=== PATIENT | male | born 1955 | race African-American/Black ===

== ENCOUNTER 2017-08-15 15:17 | Inpatient (IN) | payer OTHER, BC ==
[2017-08-15 15:25] VITALS: BMI 24.1
--- NOTE | 2017-08-15 15:26 | PDOC ---
Rapid Medical Evaluation Time Seen by Provider: 08/15/17 15:22 Medical Evaluation: 08/15/17 15:22 I have performed a brief in-person evaluation of this patient. The patient presents with a chief complaint of:upper abd pain that started after eating blended fruits with a bowl of cereal yesterday, no n/v/d/c/f/c. Seen by pmd whose concern is possible pancreatitis. Pt denies gallstones/ excessive ETOH use Pertinent physical exam findings:Mildly hypertensives w/ clear chest/lungs and + ttp/guarding to epigastrium I have ordered the following:labs/ekg The patient will proceed to the ED for further evaluation. 08/15/17 15:26
[2017-08-15 15:59] LABS: BASO % 0.2 % (0-2.0); EOS % 0.1 % (0-4.5); HEMATOCRIT 46.6 % (35.4-49); HEMOGLOBIN 15.7 GM/dL (11.7-16.9); LYMPH % 8.1 % (8-40); MCH 28.7 pg (25.7-33.7); MCHC 33.7 g/dl (32.0-35.9); MEAN CELL VOLUME 85.3 fl (80-96); MEAN PLT VOLUME 9.5 fl (7.5-11.1); MONO % 6.4 % (3.8-10.2); NEUT % 85.2 % (42.8-82.8); PLATELET COUNT 272 K/MM3 (134-434); RBC 5.46 M/mm3 (4.00-5.60); RDW 14.9 % (11.9-15.9); WHITE BLOOD COUNT 15.4 K/mm3 (4.0-10.0)
[2017-08-15 16:11] LABS: ALBUMIN 4.5 g/dl (3.4-5.0); ANION GAP 9 (8-16); BILIRUBIN,TOTAL 0.6 mg/dL (0.2-1.0); BLOOD UREA NITROGEN 11 mg/dL (7-18); CALCIUM 9.7 mg/dL (8.5-10.1); CHLORIDE 100 mmol/L (98-107); CO2 28 mmol/L (21-32); CREATININE 0.9 mg/dL (0.7-1.3); GLUCOSE,RANDOM 135 mg/dL (74-106); LIPASE 72 U/L (73-393); SGOT/AST 18 U/L (15-37); SGPT/ALT 25 U/L (12-78); SODIUM 137 mmol/L (136-145)
[2017-08-15 16:15] LABS: ALK PHOS 67 U/L (45-117); TOT PROT 8.3 g/dl (6.4-8.2)
--- NOTE | 2017-08-15 16:42 | PDOC ---
Attending Attestation - HPI HPI: 08/15/17 18:03 The patient is a 62 year old male, with a significant past medical history of hypertension, who presents to the emergency department with abdominal pain since earlier this morning. The patient reports sudden onset of abdominal pain, which he describes a burning to the mid abdomen. He reports his symptoms began after eating breakfast. He endorses associated nausea, but denies any vomiting, diarrhea, or constipation. Patient reports visiting his PCP, who recommended the patient come to the ED to r/o pancreatitis. The patient denies any history of heavy alcohol use, and reports his last drink was several weeks ago. He denies any fever or chills. He denies any chest pain, shortness of breath, diaphoresis, or palpitations. He denies any dysuria, hematuria, frequency, or urgency. He denies any recent travel or sick contacts. Allergies: NKDA Past Surgical History: None reported Social History: Non smoker. No ETOH or recreational drug use - Medical Decision Making 08/15/17 18:03 Documentation prepared by Casper Franco, acting as medical records coordinator for Alma Pepper MD. <Casper Franco - Last Filed: 08/15/17 18:03> - Resident Resident Name: Luis Fernando Jaime - ED Attending Attestation I have performed the following: I have examined & evaluated the patient, The case was reviewed & discussed with the resident, I agree w/resident's findings & plan, Exceptions are as noted - Physicial Exam PE: GENERAL: Awake, alert, and fully oriented, in no acute distress. Appears uncomfortable. HEAD: No signs of trauma EYES: PERRLA, EOMI, sclera anicteric, conjunctiva clear ENT: Auricles normal inspection, hearing grossly normal, nares patent, oropharynx clear without exudates. Moist mucosa NECK: Normal ROM, supple, no lymphadenopathy, JVD, or masses LUNGS: Breath sounds equal, clear to auscultation bilaterally. No wheezes, and no crackles HEART: Regular rate and rhythm, normal S1 and S2, no murmurs, rubs or gallops ABDOMEN: Soft, +diffuse tenderness (worst in epigastric area), normoactive bowel sounds. +Guarding, +rebound. No masses EXTREMITIES: Normal range of motion, no edema. No clubbing or cyanosis. No cords, erythema, or tenderness NEUROLOGICAL: Cranial nerves II through XII grossly intact. Normal speech, normal gait SKIN: Warm, Dry, normal turgor, no rashes or lesions noted. - Medical Decision Making Pt with diffuse abd tenderness. Pt is vague historian and appears to minimize his pain, as he has involuntary guarding on exam. Will obtain CT to further evaluate. <Alma Pepper - Last Filed: 08/16/17 10:23>
--- NOTE | 2017-08-15 17:11 | PDOC ---
History of Present Illness - General Chief Complaint: Pain, Acute Stated Complaint: ABD PAIN (PCP SENT) Time Seen by Provider: 08/15/17 15:22 - History of Present Illness Initial Comments: 08/15/17 17:47 The patient is a 62 year old male with a history of HTN who presents for evaluation of abdominal pain. The patient reports onset of burning mid abdominal pain earlier this morning after eating breakfast with some associated nausea. The patient initially presented to his primary care provider who sent him to the ED for concerns for pancreatitis. The patient denies any history of heavy alcohol use with his last drink several weeks ago. He denies fevers, chills, SOB, chest pain, vomiting, or changes with urination or bowel movements. Past History - Past Medical History Allergies/Adverse Reactions: Allergies Allergy/AdvReac Type Severity Reaction Status Date / Time No Known Allergies Allergy Verified 08/15/17 15:25 Home Medications: Ambulatory Orders Amlodipine Besylate 5 mg PO DAILY 08/15/17 Hydrochlorothiazide [Hctz -] 12.5 mg PO DAILY 08/15/17 COPD: No HTN: Yes - Suicide/Smoking/Psychosocial Hx Smoking History: Never smoked Hx Alcohol Use: Yes Drug/Substance Use Hx: No Review of Systems - Review of Systems Comments:: 08/15/17 17:49 Constitutional: No fevers, chills, fatigue, malaise HEENT: No Rhinorrhea, nasal congestion, visual changes Cardiovascular: No chest pain, syncope, palpitations, lightheadedness Respiratory: No Cough, SOB, Hemoptysis, Gastrointestinal: Abdominal pain. Nausea. No Vomiting, Constipation, Diarrhea, Melena Genitourinary: No Dysuria, Frequency, Urgency, Hesitancy, Hematuria, Flank pain Musculoskeletal: No Myalgia, arthralgia Skin: No rashes, itching, bruising, pallor Neurologic: No Headache, Dizziness, Numbness, Weakness, or Tingling Psychiatric: No Hallucinations. No SI or HI *Physical Exam - Vital Signs Last Vital Signs Temp Pulse Resp BP Pulse Ox 98.5 F 94 H 18 144/103 97 08/15/17 15:22 08/15/17 15:22 08/15/17 15:22 08/15/17 15:22 08/15/17 15:22 - Physical Exam Comments: 08/15/17 17:51 General Appearance: Nourished. No Apparent Distress HEENT: EOMI, CAROLE. No Pharyngeal Erythema, Tonsillar Exudate, Tonsillar Erythema Neck: No Cervical Lymphadenopathy Respiratory/Chest: Lungs Clear, Normal Breath Sounds. No Crackles, Rales, Rhonchi, Wheezing Cardiovascular: Regular Rhythm, Regular Rate. No Murmur, Gallops, Rubs Gastrointestinal/Abdominal: Normal Bowel Sounds. Tenderness to palpation just below the epigastrium with guarding. No Rebound, Musculoskeletal: No CVA Tenderness Extremity: Normal Capillary Refill Integumentary: Normal Color, Dry, Warm Neurologic: Fully Oriented, Alert, Normal Mood/Affect, Normal Response, Heart Score/ECG Review #1 ECG reviewed & interpreted by me at: 18:03 General ECG Interpretation: Sinus Rhythm, Normal Rate, Normal Intervals, No acute ischemic changes ED Treatment Course - LABORATORY CBC & Chemistry Diagram: 08/16/17 07:00 08/16/17 07:00 - ADDITIONAL ORDERS Additional order review: Laboratory Results 08/15/17 15:40 Sodium 137 Potassium 4.0 Chloride 100 Carbon Dioxide 28 Anion Gap 9 BUN 11 Creatinine 0.9 Creat Clearance w eGFR > 60 Random Glucose 135 H Calcium 9.7 Total Bilirubin 0.6 AST 18 ALT 25 Alkaline Phosphatase 67 Creatine Kinase 136 Troponin I < 0.02 Total Protein 8.3 H Albumin 4.5 Lipase 72 L 08/15/17 15:40 RBC 5.46 MCV 85.3 MCHC 33.7 RDW 14.9 MPV 9.5 Neutrophils % 85.2 H Lymphocytes % 8.1 Monocytes % 6.4 Eosinophils % 0.1 Basophils % 0.2 Medical Decision Making - Medical Decision Making 08/15/17 17:53 The patient is a 62 year old male with a history of HTN who presents for evaluation of abdominal pain. Differential includes but is not limited to: Pancreatitis, Gastritis, infectious, metabolic derangement. Labs performed in triage demonstrate an elevated wbc to 15, but otherwise cmp, lipase are unremarkable. Given his continued symptoms, we will obtain a ct abdomen/pelvis to evaluate further and treat the patient with iv fluids. We will continue to monitor and reassess. 08/15/17 19:05 CT abdomen pelvis demonstrates high grade, partial small bowel obstruction as read by our radiologist. The patient will require admission for further management of his symptoms. We will consult with surgery as well. 08/15/17 19:06 We discussed the case with Dr. Leigh with surgery who has been made aware of the case. An NG tube will be placed and the patient will be admitted. The patient has been signed out to Dr. Araujo pending admission and ng tube placement. *DC/Admit/Observation/Transfer Diagnosis at time of Disposition: Small bowel obstruction - Discharge Dispostion Condition at time of disposition: Guarded - Referrals - Patient Instructions - Post Discharge Activity
[2017-08-15] MEDS ORDERED: SODIUM CHLORIDE 1,000 ML IV STA (17:38)
[2017-08-15] MEDS ORDERED: morphine CARPU-JECT 4 MG/1 ML DISP.SYRIN IVPUSH ONE ×2 (19:18→19:34)
--- NOTE | 2017-08-15 19:25 | HP ---
CHIEF COMPLAINT: sever Abdominal pain PCP: Delaney Casarez HISTORY OF PRESENT ILLNESS: 62 year old male with pmh of HTN and left inguinal hernia presented with one day history of sever abdominal pain med epigastric 10/10 local no radiating pressure like. denies any fever chills, N/V/D . last bowel movement morning was normal. denies any recent cold or sick contact. denies any headache , blurry vision, sore throat, denies any chest pain or SOB, denies any urinary symptoms. ER course was notable for: (1)CBC, CMP (2)CT Abdomen pelvic with small bowel obstruction (3)EKG QTC Recent Travel:denies PAST MEDICAL HISTORY:HTN. Left inguinal hernia PAST SURGICAL HISTORY: Left inguinal hernia , tubal legation (vasectomy) Social History: Smoking:denies Alcohol: 2 shots of weskey daily , quit 2 weeks ago Drugs: denies Family History:mother at age of 67 of stroke , father of old age. Allergies No Known Allergies Allergy (Verified 08/15/17 15:25) HOME MEDICATIONS: REVIEW OF SYSTEMS CONSTITUTIONAL: Absent: fever, chills, diaphoresis, generalized weakness, malaise, loss of appetite, weight change HEENT: Absent: rhinorrhea, nasal congestion, throat pain, throat swelling, difficulty swallowing, mouth swelling, ear pain, eye pain, visual changes CARDIOVASCULAR: Absent: chest pain, syncope, palpitations, irregular heart rate, lightheadedness , peripheral edema RESPIRATORY: Absent: cough, shortness of breath, dyspnea with exertion, orthopnea, wheezing, stridor, hemoptysis GASTROINTESTINAL: Absent: abdominal pain, abdominal distension, nausea, vomiting, diarrhea, constipation, melena, hematochezia GENITOURINARY: Absent: dysuria, frequency, urgency, hesitancy, hematuria, flank pain, genital pain MUSCULOSKELETAL: Absent: myalgia, arthralgia, joint swelling, back pain, neck pain SKIN: Absent: rash, itching, pallor HEMATOLOGIC/IMMUNOLOGIC: Absent: easy bleeding, easy bruising, lymphadenopathy, frequent infections ENDOCRINE: Absent: unexplained weight gain, unexplained weight loss, heat intolerance, cold intolerance NEUROLOGIC: Absent: headache, focal weakness or paresthesias, dizziness, unsteady gait, seizure, mental status changes, bladder or bowel incontinence PSYCHIATRIC: Absent: anxiety, depression, suicidal or homicidal ideation, hallucinations. PHYSICAL EXAMINATION Vital Signs - 24 hr 08/15/17 15:22 Temperature 98.5 F Pulse Rate 94 H Respiratory 18 Rate Blood Pressure 144/103 O2 Sat by Pulse 97 Oximetry (%) GENERAL: AAOx 3 HEAD: NC/AT EYES: EOMI, PEARLA , sclera anicteric, conjunctiva clear. EARS, NOSE, THROAT: Ears normal, nares patent, oropharynx clear without exudates. Moist mucous membranes. NECK: Normal range of motion, supple without lymphadenopathy, JVD, LUNGS: CTA B/L . No wheezes, and no crackles. No accessory muscle use. HEART: Regular rate and rhythm, normal S1 and S2 without murmur, rub or gallop. ABDOMEN: Soft, mid epigastric tenderness , not distended, hyperactive bowel sounds, no guarding, no rebound, MUSCULOSKELETAL: Normal range of motion at all joints. No bony deformities or tenderness. No CVA tenderness. UPPER EXTREMITIES: 2+ pulses, warm, well-perfused. No cyanosis. No clubbing. No peripheral edema. LOWER EXTREMITIES: 2+ pulses, warm, well-perfused. No calf tenderness. No peripheral edema. NEUROLOGICAL: Cranial nerves II-XII intact. Normal speech. Normal gait. PSYCHIATRIC: Cooperative. Good eye contact. SKIN: Warm, dry, Laboratory Results - last 24 hr 08/15/17 08/15/17 15:40 15:40 WBC 15.4 H RBC 5.46 Hgb 15.7 Hct 46.6 MCV 85.3 MCH 28.7 MCHC 33.7 RDW 14.9 Plt Count 272 MPV 9.5 Neutrophils % 85.2 H Lymphocytes % 8.1 Monocytes % 6.4 Eosinophils % 0.1 Basophils % 0.2 Sodium 137 Potassium 4.0 Chloride 100 Carbon Dioxide 28 Anion Gap 9 BUN 11 Creatinine 0.9 Creat Clearance w eGFR > 60 Random Glucose 135 H Calcium 9.7 Total Bilirubin 0.6 AST 18 ALT 25 Alkaline Phosphatase 67 Creatine Kinase 136 Troponin I < 0.02 Total Protein 8.3 H Albumin 4.5 Lipase 72 L CBC, [facility] 08/15/17 15:40 08/15/17 15:40 ASSESSMENT/PLAN: 62 year old male with PMH of HTn and L inguinal hernia presented with one day history of sever abdominal pain with no nausea or vomiting was found to have small bowel obstruction, admitted to med surg for further evaluation. # Abdominal pain due to partial Small Bowel obstruction * presented with med epigastric abdominal pain , no N/V , H/O Left inguinal hernia * wbc 14.4 with no fever , repeat CBC, CMP daily * NPO * IV fluids RL 125 CC/hr * NG tube in place * pain control: Morphin 2 mg IVBP Q 4hr * Antiemetics : Zofran 4 mg IVBP Q 8hr PRN for N/V * Consult Surgery # HTN * hold home meds for now Amlodipine 5 mg po daily , HCTZ 12.5 mg po daily * Monitor BP closely off medicine # FEN * F: RL @ 125 CC/hr * E: WNL monitor * N: NPO for now bowel rest # Proph * DVT: SCDs both legs , early ambulation * GI: no need for now #dispo * Admit to med-surg Visit type - Emergency Visit Emergency Visit: Yes ED Registration Date: 08/15/17 Care time: The patient presented to the Emergency Department on the above date and was hospitalized for further evaluation of their emergent condition. - New Patient This patient is new to me today: Yes Date on this admission: 08/18/17 - Critical Care Critical Care patient: No Hospitalist Screening - Colonoscopy Questionnaire Colonoscopy Questionnaire: Colonoscopy Questionnaire - Patient: 50 - 75 years old and never had a screening colonoscopy: Yes History of colon or rectal polyps, or CA: No History of IBD, Crohn's disease or UC: No History of abdominal radiation therapy as a child: No - Relative: 1 with colon or rectal CA, or polyps at age 60 or younger: No Colon or rectal CA diagnosed at age 45 or younger: No Multiple relatives with colon or rectal CA: No - Outcome: Screening Result: Positive Screen
[2017-08-15] MEDS ORDERED: MORPHINE SULFATE 10 MG/1 ML *VIAL ONE (19:35)
--- NOTE | 2017-08-15 19:55 | PDOC ---
*Physical Exam - Vital Signs Last Vital Signs Temp Pulse Resp BP Pulse Ox 98.5 F 94 H 18 144/103 97 08/15/17 15:22 08/15/17 15:22 08/15/17 15:22 08/15/17 15:22 08/15/17 15:22 ED Treatment Course - LABORATORY CBC & Chemistry Diagram: 08/15/17 15:40 08/15/17 15:40 - ADDITIONAL ORDERS Additional order review: Laboratory Results 08/15/17 15:40 Sodium 137 Potassium 4.0 Chloride 100 Carbon Dioxide 28 Anion Gap 9 BUN 11 Creatinine 0.9 Creat Clearance w eGFR > 60 Random Glucose 135 H Calcium 9.7 Total Bilirubin 0.6 AST 18 ALT 25 Alkaline Phosphatase 67 Creatine Kinase 136 Troponin I < 0.02 Total Protein 8.3 H Albumin 4.5 Lipase 72 L 08/15/17 15:40 RBC 5.46 MCV 85.3 MCHC 33.7 RDW 14.9 MPV 9.5 Neutrophils % 85.2 H Lymphocytes % 8.1 Monocytes % 6.4 Eosinophils % 0.1 Basophils % 0.2 - Medications Given in the ED: ED Medications Discontinued Medications Generic Name Dose Route Start Last Admin Trade Name Freq PRN Reason Stop Dose Admin Sodium Chloride 1,000 mls @ 1,000 mls/hr 08/15/17 17:38 08/15/17 18:51 Normal Saline - IV 08/15/17 18:37 1,000 mls/hr ASDIR STA Administration Morphine Sulfate 4 mg 08/15/17 19:18 08/15/17 19:43 Morphine Injection - IVPUSH 08/15/17 19:19 4 mg ONCE ONE Administration Morphine Sulfate 4 mg 08/15/17 19:34 08/15/17 19:38 Morphine Injection - IVPUSH 08/15/17 19:35 4 mg ONCE ONE Administration Medical Decision Making - Medical Decision Making 08/15/17 19:53 Continuing medical care from Dr. Jaime. Pt with partial SBO, for admission- will discuss with hospitalist team. Pt for imaging currently to confirm NGT placement. Intermittent wall suction Still c/o of intermittent, diffuse abdominal pain- 03/2508/15/17 20:16 Pt for med-surg under Dr. Deluca. Discussed case with Dr. Kenney, hospitalist team. *DC/Admit/Observation/Transfer Diagnosis at time of Disposition: Small bowel obstruction - Discharge Dispostion Condition at time of disposition: Guarded Admit: Yes - Referrals - Patient Instructions - Post Discharge Activity
[2017-08-15] MEDS ORDERED: morphine CARPU-JECT 2 MG/1 ML DISP.SYRIN IVPUSH PRN (21:06)
[2017-08-15] MEDS ORDERED: ONDANSETRON 4 MG/2 ML VIAL IVPB ONE (21:14)
[2017-08-15] MEDS ORDERED: ONDANSETRON 4 MG/2 ML VIAL ONE (22:01)
[2017-08-15] MEDS: LACTATED RINGERS SOLUTION 1,000 ML IV SCH (22:06)
--- NOTE | 2017-08-15 23:26 | PN ---
Teaching Attending Note Name of Resident: Kobe Kenney ATTENDING PHYSICIAN STATEMENT I saw and evaluated the patient. I reviewed the resident's note and discussed the case with the resident. I agree with the resident's findings and plan as documented. SUBJECTIVE: 62M with hx hernia repair comes in with abd Pain, no BM for past day OBJECTIVE: abdomen tender nonfocal, no rebound or guarding CTAP shows small bowel obstruction ASSESSMENT AND PLAN: partial SBO, possibly form adhesions from prior abdominal surgery. He currently does not have an acute abdomen and can be managed conservatively. NGT, IVF, pain control surgery eval Problem List - Problems (1) Small bowel obstruction Code(s): K56.609 - UNSP INTESTNL OBST, UNSP TO PARTIAL VERSUS COMPLETE OBST
[2017-08-15] MEDS: MORPHINE SULFATE 10 MG/1 ML *VIAL IVPUSH PRN (23:51)
[2017-08-16] MEDS: LACTATED RINGERS SOLUTION 1,000 ML IV SCH ×3 (05:32→21:48)
[2017-08-16 08:27] LABS: ALBUMIN 3.5 g/dl (3.4-5.0); AMYLASE 167 U/L (25-115); ANION GAP 13 (8-16); BLOOD UREA NITROGEN 11 mg/dL (7-18); CALCIUM 8.9 mg/dL (8.5-10.1); CHLORIDE 101 mmol/L (98-107); CO2 26 mmol/L (21-32); CREATININE 0.8 mg/dL (0.7-1.3); GLUCOSE,RANDOM 129 mg/dL (74-106); MAGNESIUM 2.1 mg/dL (1.8-2.4); POTASSIUM 4.1 mmol/L (3.5-5.1); SGOT/AST 20 U/L (15-37); SGPT/ALT 20 U/L (12-78); SODIUM 140 mmol/L (136-145)
[2017-08-16 08:29] LABS: ALK PHOS 54 U/L (45-117); BILIRUBIN,TOTAL 0.7 mg/dL (0.2-1.0)
[2017-08-16 08:36] LABS: LIPASE 256 U/L (73-393)
[2017-08-16 08:39] LABS: BASO % 0.4 % (0-2.0); EOS % 1.1 % (0-4.5); HEMATOCRIT 42.5 % (35.4-49); HEMOGLOBIN 14.2 GM/dL (11.7-16.9); LYMPH % 8.4 % (8-40); MCH 28.8 pg (25.7-33.7); MCHC 33.4 g/dl (32.0-35.9); MEAN CELL VOLUME 86.2 fl (80-96); MEAN PLT VOLUME 9.8 fl (7.5-11.1); MONO % 9.5 % (3.8-10.2); NEUT % 80.6 % (42.8-82.8); PLATELET COUNT 240 K/MM3 (134-434); RBC 4.92 M/mm3 (4.00-5.60); RDW 14.8 % (11.9-15.9); WHITE BLOOD COUNT 14.1 K/mm3 (4.0-10.0)
[2017-08-16 08:45] LABS: INR 1.04 (0.82-1.09); PROTHROMBIN TIME (PATIENT) 11.7 SEC (9.98-11.88)
[2017-08-16 08:48] LABS: ACTIVATED PTT 27.8 SECONDS (26.9-34.4)
--- NOTE | 2017-08-16 10:10 | PN ---
Physical Exam: SUBJECTIVE: Patient seen and examined Patient is comfortable with no acute distress. NPO, NG-tube draining. OBJECTIVE: Vital Signs Temperature 98.8 F 08/16/17 06:25 Pulse Rate 72 08/16/17 06:25 Respiratory Rate 20 08/16/17 06:25 Blood Pressure 126/75 08/16/17 06:25 O2 Sat by Pulse Oximetry (%) 98 08/15/17 20:51 GENERAL: The patient is awake, alert, and fully oriented, in no acute distress. HEAD: Normal with no signs of trauma. EYES: PERRL, extraocular movements intact, sclera anicteric, conjunctiva clear. ENT: Ears normal, oropharynx clear without exudates, moist mucous membranes., positive for NG-tube NECK: Trachea midline, full range of motion, supple. LUNGS: Breath sounds equal, clear to auscultation bilaterally, no wheezes, no crackles, no accessory muscle use. HEART: Regular rate and rhythm, S1, S2 without murmur, rub or gallop. ABDOMEN: Soft, mild tenderness , nondistended, hypoactive BS , no guarding, no rebound, no hepatosplenomegaly, no masses. EXTREMITIES: 2+ pulses, warm, well-perfused, no edema. NEUROLOGICAL: Cranial nerves II through XII grossly intact. Normal speech, gait not observed. PSYCH: Normal mood, normal affect. SKIN: Warm, dry, normal turgor, no rashes or lesions noted CBCD WBC 14.1 K/mm3 (4.0-10.0) H 08/16/17 07:00 RBC 4.92 M/mm3 (4.00-5.60) 08/16/17 07:00 Hgb 14.2 GM/dL (11.7-16.9) 08/16/17 07:00 Hct 42.5 % (35.4-49) 08/16/17 07:00 MCV 86.2 fl (80-96) 08/16/17 07:00 MCHC 33.4 g/dl (32.0-35.9) 08/16/17 07:00 RDW 14.8 % (11.9-15.9) 08/16/17 07:00 Plt Count 240 K/MM3 (134-434) 08/16/17 07:00 MPV 9.8 fl (7.5-11.1) 08/16/17 07:00 CMP Sodium 140 mmol/L (136-145) 08/16/17 07:00 Potassium 4.1 mmol/L (3.5-5.1) 08/16/17 07:00 Chloride 101 mmol/L (98-107) 08/16/17 07:00 Carbon Dioxide 26 mmol/L (21-32) 08/16/17 07:00 Anion Gap 13 (8-16) 08/16/17 07:00 BUN 11 mg/dL (7-18) 08/16/17 07:00 Creatinine 0.8 mg/dL (0.7-1.3) 08/16/17 07:00 Creat Clearance w eGFR > 60 (>60) 08/16/17 07:00 Random Glucose 129 mg/dL (74-106) H 08/16/17 07:00 Calcium 8.9 mg/dL (8.5-10.1) 08/16/17 07:00 Total Bilirubin 0.7 mg/dL (0.2-1.0) 08/16/17 07:00 AST 20 U/L (15-37) 08/16/17 07:00 ALT 20 U/L (12-78) 08/16/17 07:00 Alkaline Phosphatase 54 U/L (45-117) 08/16/17 07:00 Total Protein 7.0 g/dl (6.4-8.2) 08/16/17 07:00 Albumin 3.5 g/dl (3.4-5.0) D 08/16/17 07:00 CARDIAC ENZYMES Creatine Kinase 136 IU/L (39-308) 08/15/17 15:40 Troponin I < 0.02 ng/ml (0.00-0.05) 08/15/17 15:40 Home Medications Medication Instructions Recorded Amlodipine Besylate 5 mg PO DAILY 08/15/17 Hydrochlorothiazide [Hctz -] 12.5 mg PO DAILY 08/15/17 Active Medications Generic Name Dose Route Start Last Admin Trade Name Freq PRN Reason Stop Dose Admin Lactated Ringer's 1,000 mls @ 125 mls/hr 08/15/17 21:15 08/16/17 05:32 Lactated Ringers Solution IV 125 mls/hr ASDIR CHANDRAKANT Administration Morphine Sulfate 2 mg 08/15/17 23:43 08/15/17 23:51 Morphine Injection - IVPUSH 2 mg Q4H PRN Administration PAIN LEVEL 1-5 CT abdomen and Pelvis: High grade partial SBO, no acute pancreatitis. ASSESSMENT/PLAN: 62 year old male with PMH of HTn and L inguinal hernia presented with one day history of sever abdominal pain with no nausea or vomiting was found to have small bowel obstruction, admitted to med surg for further evaluation. # partial SBO, possibly form adhesions from prior abdominal surgery. No acute abdomen at this time, continue NGT, IVF, pain control. Surgery for consult , 125 CC/hr , NPO for now bowel rest. # HTN continue home meds. DVT Px: SCDs both legs , early ambulation Visit type - Emergency Visit Emergency Visit: Yes ED Registration Date: 08/15/17 Care time: The patient presented to the Emergency Department on the above date and was hospitalized for further evaluation of their emergent condition. - New Patient This patient is new to me today: Yes Date on this admission: 08/16/17 - Critical Care Critical Care patient: No - Discharge Referral Referred to [facility] Med [facility] No
--- NOTE | 2017-08-16 10:25 | CONSULT ---
- Consultation REQUESTING PROVIDER: ER MD CONSULT REQUEST: We have been asked to surgically evaluate this patient for abdominal pain PCP:Sabine Redd HISTORY OF PRESENT ILLNESS: 62 y/o male presented to his PMD w/ above c/o's and was sent to the ED for evaluation; patient reports sudden onset of n/v/crampy diffuse abdo pain w/ obstipation and abdominal distention that started precipitously yesterday; never had this before; previous surgery notable for LIH repair > 20 years ago PMHx: hypertension PSHx: open left inguinal hernia repair Home Medications Medication Instructions Recorded Amlodipine Besylate 5 mg PO DAILY 08/15/17 Hydrochlorothiazide [Hctz -] 12.5 mg PO DAILY 08/15/17 Allergies Allergy/AdvReac Type Severity Reaction Status Date / Time No Known Allergies Allergy Verified 08/15/17 15:25 PHYSICAL EXAM: GENERAL: Awake, alert, and fully oriented, in no acute distress. HEAD: Normal with no signs of trauma. EYES: PERRL, sclera anicteric, conjunctiva clear. NECK: Normal ROM, supple without lymphadenopathy, JVD, or masses. ABDOMEN: Soft, nontender,softly distended and tympanitic, normoactive bowel sounds, no guarding, no rebound, no masses. No organomegaly. ? umbilical hernia ? no groin hernias; scar left groin; genitalia are normal MUSCULOSKELETAL: Normal ROM at all joints. No bony deformities or tenderness. No CVA tenderness. UPPER EXTREMITIES: 2+ pulses, warm, well-perfused. No cyanosis. Cap refill <2 seconds. No peripheral edema. LOWER EXTREMITIES: 2+ pulses, warm, well-perfused. No calf tenderness. No peripheral edema. NEUROLOGICAL: Normal speech, gait not observed. PSYCH: Cooperative. Good eye contact. Appropriate mood and affect. SKIN: Warm, dry, normal turgor, no rashes or lesions noted. Vital Signs Temperature 98.8 F 08/16/17 06:25 Pulse Rate 72 08/16/17 06:25 Respiratory Rate 20 08/16/17 06:25 Blood Pressure 126/75 08/16/17 06:25 O2 Sat by Pulse Oximetry (%) 98 08/15/17 20:51 Lab Results WBC 14.1 K/mm3 (4.0-10.0) H 08/16/17 07:00 RBC 4.92 M/mm3 (4.00-5.60) 08/16/17 07:00 Hgb 14.2 GM/dL (11.7-16.9) 08/16/17 07:00 Hct 42.5 % (35.4-49) 08/16/17 07:00 MCV 86.2 fl (80-96) 08/16/17 07:00 MCHC 33.4 g/dl (32.0-35.9) 08/16/17 07:00 RDW 14.8 % (11.9-15.9) 08/16/17 07:00 Plt Count 240 K/MM3 (134-434) 08/16/17 07:00 Sodium 140 mmol/L (136-145) 08/16/17 07:00 Potassium 4.1 mmol/L (3.5-5.1) 08/16/17 07:00 Chloride 101 mmol/L (98-107) 08/16/17 07:00 Carbon Dioxide 26 mmol/L (21-32) 08/16/17 07:00 Anion Gap 13 (8-16) 08/16/17 07:00 BUN 11 mg/dL (7-18) 08/16/17 07:00 Creatinine 0.8 mg/dL (0.7-1.3) 08/16/17 07:00 Random Glucose 129 mg/dL (74-106) H 08/16/17 07:00 Calcium 8.9 mg/dL (8.5-10.1) 08/16/17 07:00 INR 1.04 (0.82-1.09) 08/16/17 07:00 CT scan a/p reviewed and c/w w/psbo AXR's done today look like psbo w/ air in colon and no a/f levels pending official reading IMP: PSBP PLAN: NPO/IVF/NGT to LCS ( adjusted same and now working correctly)serial abdominal exams and xrays; d/w patient; will f/u; no indication for surgical intervention at this time. James Leihg MD FACS Visit type - Case Type Case Type: ED Admission - Emergency Emergency Visit: Yes ED Registration Date: 08/15/17 Care time: The patient presented to the Emergency Department on the above date and was hospitalized for further evaluation of their emergent condition. - New patient This patient is new to me today: Yes Date on this admission: 08/16/17 - Critical Care Critical Care patient: No
[2017-08-16 10:26] LABS: URINE APPEARANCE CLEAR; URINE BILIRUBIN NEGATIVE (NEGATIVE); URINE BLOOD NEGATIVE (NEGATIVE); URINE COLOR YELLOW; URINE GLUCOSE (UA) NEGATIVE (NEGATIVE); URINE KETONE NEGATIVE (NEGATIVE); URINE LEUK ESTERASE NEGATIVE (NEGATIVE); URINE NITRITE NEGATIVE (NEGATIVE); URINE PROTEIN NEGATIVE (NEGATIVE); URINE UROBILINOGEN NEGATIVE mg/dL (0.2-1.0)
--- NOTE | 2017-08-16 11:42 | EKG ---
Test Reason : Blood Pressure : / mmHG Vent. Rate : 076 BPM Atrial Rate : 076 BPM P-R Int : 144 ms QRS Dur : 078 ms QT Int : 368 ms P-R-T Axes : 063 058 053 degrees QTc Int : 414 ms NORMAL SINUS RHYTHM WITH SINUS ARRHYTHMIA POSSIBLE LEFT ATRIAL ENLARGEMENT BORDERLINE ECG NO PREVIOUS ECGS AVAILABLE Confirmed by MD BHARAT, RUTH ([id number]) on 08/16/2017 11:42:36 AM Referred By: Confirmed By:RUTH NICHOLSON MD
[2017-08-16] MEDS: MORPHINE SULFATE 10 MG/1 ML *VIAL IVPUSH PRN ×3 (14:32→21:49)
[2017-08-17] MEDS: MORPHINE SULFATE 10 MG/1 ML *VIAL IVPUSH PRN ×2 (04:38→11:06)
[2017-08-17] MEDS: LACTATED RINGERS SOLUTION 1,000 ML IV SCH ×2 (06:18→16:01)
--- NOTE | 2017-08-17 11:10 | PN ---
Progress Note (short form) - Note Progress Note: Attending Surgeon Seen in f/u; ? passed some flatus VSS AF abdomen-softly distended AXR's-no a/f levels; air in colon. IMP: PSBO PLAN: Continue present tx. repeat imaging tomorrow; will f/u. James Leigh MD FACS
--- NOTE | 2017-08-17 13:59 | PN ---
Addendum entered and electronically signed by Natasha Martin, RESIDENT 16:06: The pt has leukocytosis, low grade fever and elevated CRP. We started Rocephin 2 mg daily and Flagyl 500 mg Q8H. We also consulted ID. Original Note: <Natasha Martin - Last Filed: 08/17/17 15:53> Physical Exam: SUBJECTIVE: Patient seen and examined. He is complaining of mild abdominal discomfort. He is passing "a little bit of gas", no BMs. OBJECTIVE: Vital Signs Period Temp Pulse Resp BP Sys/Ramos Pulse Ox Last 24 Hr 98.4 F-99.7 F 71-86 16-22 125-147/74-81 95-98 GENERAL: The patient is awake, alert, and fully oriented, in no acute distress. HEAD: Normal with no signs of trauma. EYES: extraocular movements intact, conjunctiva clear. ENT: oropharynx clear without exudates, moist mucous membranes, NG tube draining dark brown fluid. Over 1000 ml in canister. NECK: Trachea midline, full range of motion, supple. LUNGS: clear to auscultation bilaterally, no wheezes, no crackles, no accessory muscle use. HEART: Regular rate and rhythm, S1, S2 without murmur, rub or gallop. ABDOMEN: Soft, nontender, nondistended, hypoactive bowel sounds, no guarding, no rebound. EXTREMITIES: 2+ pulses, warm, no edema. NEUROLOGICAL: no facial asymmetry, gait not observed. PSYCH: Normal mood, normal affect. SKIN: Warm, dry, normal turgor, no rashes or lesions noted Active Medications Generic Name Dose Route Start Last Admin Trade Name Freq PRN Reason Stop Dose Admin Lactated Ringer's 1,000 mls @ 125 mls/hr 08/15/17 21:15 08/17/17 06:18 Lactated Ringers Solution IV 125 mls/hr ASDIR CHANDRAKANT Administration Morphine Sulfate 2 mg 08/15/17 23:43 08/17/17 11:06 Morphine Injection - IVPUSH 2 mg Q4H PRN Administration PAIN LEVEL 1-5 ASSESSMENT/PLAN: 62 year old male with PMH of HTN, history of left inguinal hernia presented with abdominal pain and was found to have small bowel obstruction, admitted for further evaluation. Small Bowel obstruction: -still complaining of intermittent abdominal pain -surgery consulted, discussed with Dr Leigh, will continue monitoring for another day and reevaluate for possible surgery -CXR daily, no changes today -NPO -continue IV fluids RL 125 CC/hr -NG tube in place -pain control: Morphine 2 mg IVBP Q 4hr Leukocytosis: -wbc 14.1 with no fever, will obtain blood cultures, -CRP added to morning labs, elevated to 3.6 HTN -hold home meds, BP controlled FEN: LR at rate 125/no changes/NPO DVT PPX: SCDs dispo med-surg Problem List - Problems (1) Hypertension Code(s): I10 - ESSENTIAL (PRIMARY) HYPERTENSION (2) Left inguinal hernia Code(s): K40.90 - UNIL INGUINAL HERNIA, W/O OBST OR GANGR, NOT SPCF RECUR (3) Small bowel obstruction Code(s): K56.609 - UNSP INTESTNL OBST, UNSP TO PARTIAL VERSUS COMPLETE OBST Visit type - Emergency Visit Emergency Visit: Yes ED Registration Date: 08/15/17 Care time: The patient presented to the Emergency Department on the above date and was hospitalized for further evaluation of their emergent condition. - New Patient This patient is new to me today: Yes Date on this admission: 08/17/17 - Critical Care Critical Care patient: No - Discharge Referral Referred to [facility] Med P.C.: No <Sabine Redd - Last Filed: 08/17/17 18:39> Physical Exam: Patient seen and examined Vital Signs Temperature 99.0 F 08/17/17 14:47 Pulse Rate 89 08/17/17 14:47 Respiratory Rate 16 08/17/17 14:47 Blood Pressure 146/85 08/17/17 14:47 O2 Sat by Pulse Oximetry (%) 98 08/17/17 09:00 CBCD WBC 14.1 K/mm3 (4.0-10.0) H 08/16/17 07:00 RBC 4.92 M/mm3 (4.00-5.60) 08/16/17 07:00 Hgb 14.2 GM/dL (11.7-16.9) 08/16/17 07:00 Hct 42.5 % (35.4-49) 03/03/18 07:00 MCV 86.2 fl (80-96) 08/16/17 07:00 MCHC 33.4 g/dl (32.0-35.9) 08/16/17 07:00 RDW 14.8 % (11.9-15.9) 08/16/17 07:00 Plt Count 240 K/MM3 (134-434) 08/16/17 07:00 MPV 9.8 fl (7.5-11.1) 08/16/17 07:00 CMP Sodium 140 mmol/L (136-145) 08/16/17 07:00 Potassium 4.1 mmol/L (3.5-5.1) 08/16/17 07:00 Chloride 101 mmol/L (98-107) 08/16/17 07:00 Carbon Dioxide 26 mmol/L (21-32) 08/16/17 07:00 Anion Gap 13 (8-16) 08/16/17 07:00 BUN 11 mg/dL (7-18) 08/16/17 07:00 Creatinine 0.8 mg/dL (0.7-1.3) 08/16/17 07:00 Creat Clearance w eGFR > 60 (>60) 08/16/17 07:00 Random Glucose 129 mg/dL (74-106) H 08/16/17 07:00 Calcium 8.9 mg/dL (8.5-10.1) 08/16/17 07:00 Total Bilirubin 0.7 mg/dL (0.2-1.0) 08/16/17 07:00 AST 20 U/L (15-37) 08/16/17 07:00 ALT 20 U/L (12-78) 08/16/17 07:00 Alkaline Phosphatase 54 U/L (45-117) 08/16/17 07:00 Total Protein 7.0 g/dl (6.4-8.2) 08/16/17 07:00 Albumin 3.5 g/dl (3.4-5.0) D 08/16/17 07:00 CARDIAC ENZYMES Creatine Kinase 136 IU/L (39-308) 08/15/17 15:40 Troponin I < 0.02 ng/ml (0.00-0.05) 08/15/17 15:40 Current Medications Generic Name Dose Route Start Last Admin Trade Name Freq PRN Reason Stop Dose Admin Lactated Ringer's 1,000 mls @ 125 mls/hr 08/15/17 21:15 08/17/17 16:01 Lactated Ringers Solution IV 125 mls/hr ASDIR CHANDRAKANT Administration Ceftriaxone Sodium 2 gm/ 100 mls @ 200 mls/hr 08/17/17 16:15 08/17/17 18:25 Dextrose IVPB 200 mls/hr DAILY CHANDRAKANT Administration Metronidazole 500 mg in 100 mls @ 100 mls/hr 08/17/17 18:00 08/17/17 17:20 Flagyl 500mg Premixed Ivpb - IVPB 100 mls/hr Q8H-IV CHANDRAKANT Administration Morphine Sulfate 2 mg 08/15/17 23:43 08/17/17 11:06 Morphine Injection - IVPUSH 2 mg Q4H PRN Administration PAIN LEVEL 1-5 Home Medications Medication Instructions Recorded Amlodipine Besylate 5 mg PO DAILY 08/15/17 Hydrochlorothiazide [Hctz -] 12.5 mg PO DAILY 08/15/17 Laboratory Tests 08/17/17 14:55 C-Reactive Protein 3.6 H Patient is feeling better, able to pass some gas, No fever or chills, elevated WBC can be reactive, bt CRP is 3.6 today will follow. total billiary NG drainage is around 1Liter.
[2017-08-17] MEDS ORDERED: PT OWN MED DRAWER 7, Y5N ONE (17:39)
[2017-08-17] MEDS: CEFTRIAXONE 2 GM in DEXTROSE 5%-WATER - 100 ML IVPB SCH (18:25)
[2017-08-18] MEDS: LACTATED RINGERS SOLUTION 1,000 ML IV SCH (04:22)
[2017-08-18 07:24] LABS: BASO % 0.7 % (0-2.0); EOS % 4.4 % (0-4.5); HEMATOCRIT 38.7 % (35.4-49); HEMOGLOBIN 13.1 GM/dL (11.7-16.9); MCH 29.1 pg (25.7-33.7); MCHC 33.9 g/dl (32.0-35.9); MEAN CELL VOLUME 85.9 fl (80-96); MEAN PLT VOLUME 9.4 fl (7.5-11.1); MONO % 11.6 % (3.8-10.2); NEUT % 66.3 % (42.8-82.8); PLATELET COUNT 204 K/MM3 (134-434); RBC 4.51 M/mm3 (4.00-5.60); RDW 14.4 % (11.9-15.9); WHITE BLOOD COUNT 10.8 K/mm3 (4.0-10.0)
[2017-08-18 07:50] LABS: CHLORIDE 104 mmol/L (98-107); POTASSIUM 3.3 mmol/L (3.5-5.1); SODIUM 139 mmol/L (136-145)
[2017-08-18 08:02] LABS: ALBUMIN 3.2 g/dl (3.4-5.0); ALK PHOS 46 U/L (45-117); ANION GAP 8 (8-16); BILIRUBIN,TOTAL 0.7 mg/dL (0.2-1.0); BLOOD UREA NITROGEN 10 mg/dL (7-18); CO2 27 mmol/L (21-32); CREATININE 0.7 mg/dL (0.7-1.3); GLUCOSE,RANDOM 82 mg/dL (74-106); SGOT/AST 14 U/L (15-37); SGPT/ALT 16 U/L (12-78); TOT PROT 6.1 g/dl (6.4-8.2)
[2017-08-18] MEDS ORDERED: PT OWN MED DRAWER 7, Y5N ONE (09:52)
[2017-08-18] MEDS ORDERED: POTASSIUM CHLORIDE 10 MEQ in SODIUM CHLORIDE 100 ML IVPB SCH (10:30)
--- NOTE | 2017-08-18 10:38 | PN ---
Progress Note (short form) - Note Progress Note: Attending Surgeon No c/o; passing flatus; no BM VSS AF abdomen-soft and non tender WBC down NGT minimal AXR's improved IMP: resolving PSBO PLAN: NGT d/c'ed; trial of clear liquids. James Leigh MD FACS
[2017-08-18] MEDS: CEFTRIAXONE 2 GM in DEXTROSE 5%-WATER - 100 ML IVPB SCH (11:16)
--- NOTE | 2017-08-18 13:14 | PN ---
<Kobe Kenney - Last Filed: 08/18/17 13:31> Physical Exam: SUBJECTIVE: Patient seen and examined at bedside. No acute events over jight. denies any fever, chills , abdominal pain. passing flatus but no BM. NG tube with minimal suction will Dc the tube and advance diet to clear liquids per surgery. OBJECTIVE: Vital Signs Period Temp Pulse Resp BP Sys/Ramos Pulse Ox Last 24 Hr 98.1 F-99.7 F 82-91 16-18 139-153/78-85 98-98 GENERAL: AAOx3 in NAD HEAD: NC/AT EYES: EOMI, Conjunctiva clear, sclera anicteric ENT: dry mucous membrane , NG tube in place NECK: Supple, no JVD LUNGS: CTA B/L, no crackles no wheezing no accessory muscle use. HEART: RRR, NSR, normal s1, s2, murmur no M/R/G ABDOMEN: Soft, ND, NT, +BS 4 Q, no CVA Tenderness LOWER EXTREMITIES: no edema, +2DP pulse, NEUROLOGICAL: No focal deficit. Normal speech. gait not observed. PSYCHIATRIC: Cooperative. Good eye contact. Appropriate mood and affect. SKIN: Warm, dry, Laboratory Results - last 24 hr 08/17/17 08/18/17 08/18/17 14:55 06:15 06:15 WBC 10.8 H RBC 4.51 Hgb 13.1 Hct 38.7 MCV 85.9 MCH 29.1 MCHC 33.9 RDW 14.4 Plt Count 204 MPV 9.4 Neutrophils % 66.3 Lymphocytes % 17.0 D Monocytes % 11.6 H Eosinophils % 4.4 D Basophils % 0.7 Sodium 139 Potassium 3.3 L Chloride 104 Carbon Dioxide 27 Anion Gap 8 BUN 10 Creatinine 0.7 Creat Clearance w eGFR > 60 Random Glucose 82 D Calcium 8.0 L Total Bilirubin 0.7 AST 14 L D ALT 16 Alkaline Phosphatase 46 C-Reactive Protein 3.6 H Total Protein 6.1 L Albumin 3.2 L Active Medications Generic Name Dose Route Start Last Admin Trade Name Freq PRN Reason Stop Dose Admin Lactated Ringer's 1,000 mls @ 125 mls/hr 08/15/17 21:15 08/18/17 04:22 Lactated Ringers Solution IV 125 mls/hr ASDIR CHANDRAKANT Administration Morphine Sulfate 2 mg 08/15/17 23:43 08/17/17 11:06 Morphine Injection - IVPUSH 2 mg Q4H PRN Administration PAIN LEVEL 1-5 CBC, BMP 08/18/17 06:15 08/18/17 06:15 ASSESSMENT/PLAN: 62 year old male with PMH of HTn and L inguinal hernia presented with one day history of sever abdominal pain with no nausea or vomiting was found to have small bowel obstruction, admitted to med surg for further evaluation. # Abdominal pain due to partial Small Bowel obstruction, improving * denies any abdominal pain N/V over night * wbc trending down with no fever , repeat CBC, CMP daily * PE : abdomen soft non distended . passing flatus and improve on AXR,NG tube with minimal suction will DC NG tube and advance diet to clear liquid per surgery (minimal suction 250CC) * continue IV fluids RL 125 CC/hr * pain control: Morphin 2 mg IVBP Q 4hr * Antiemetics : Zofran 4 mg IVBP Q 8hr PRN for N/V # HTN , controlled * continue Amlodipine 5 mg po daily , hold HCTZ 12.5 mg po daily * Monitor BP closely off medicine # FEN * F: RL @ 125 CC/hr * E: hypokalemia 3.3 replenished * N: advance diet to clear liquid # Proph * DVT: SCDs both legs , early ambulation * GI: no need for now #dispo * Admit to med-surg Visit type - Emergency Visit Emergency Visit: Yes ED Registration Date: 08/15/17 Care time: The patient presented to the Emergency Department on the above date and was hospitalized for further evaluation of their emergent condition. - New Patient This patient is new to me today: No - Critical Care Critical Care patient: No <Sabine Redd - Last Filed: 08/18/17 17:00> Physical Exam: Patient seen and examined with no acute distress. Patient is having Flatus, no BM yet positive for BS, NT, soft. Off NG tube now, off antibiotic now leukocytosis improved now, will check CRP and CBC level in am.
[2017-08-18] MEDS: amLODIPine BESYLATE 5 MG TABLET (FP) PO SCH (14:38)
--- NOTE | 2017-08-18 14:44 | CON.ID ---
Consult Consult Specialty:: infectious disease Referred by:: hospitalist - History of Present Illness Chief Complaint: abdominal pain History of Present Illness: 62 year old man with one day history of abdominal pain +nausea +vomiting no fevers/chills no weight loss recent colonoscopy in June- normal no travel left inguinal hernia repair NGT is out +BM this am - Past Medical History Cardio/Vascular: Yes: HTN - Past Surgical History Past Surgical History: Yes: Hernia Repair - Alcohol/Substance Use Hx Alcohol Use: Yes - Smoking History Smoking history: Never smoked - Social History Usual Living Arrangement: With Spouse ADL: Independent Occupation: maintenance for [employer] History of Recent Travel: No Home Medications - Allergies Allergies/Adverse Reactions: Allergies Allergy/AdvReac Type Severity Reaction Status Date / Time No Known Allergies Allergy Verified 08/15/17 15:25 - Home Medications Home Medications: Ambulatory Orders Amlodipine Besylate 5 mg PO DAILY 08/15/17 Hydrochlorothiazide [Hctz -] 12.5 mg PO DAILY 08/15/17 Family Disease History - Family Disease History Family History: Unremarkable Review of Systems - Review of Systems Constitutional: denies: Chills, Fever HENT: reports: No Symptoms Respiratory: denies: Cough, SOB Gastrointestinal: reports: Abdominal Pain Genitourinary: reports: No Symptoms Physical Exam Vital Signs: Vital Signs Temperature 98.1 F 08/18/17 06:00 Pulse Rate 82 08/18/17 06:00 Respiratory Rate 18 08/18/17 06:00 Blood Pressure 146/79 08/18/17 06:00 O2 Sat by Pulse Oximetry (%) 98 08/18/17 09:00 Constitutional: Yes: Well Nourished, No Distress Eyes: Yes: WNL HENT: Yes: Atraumatic, Normocephalic Neck: Yes: Supple Cardiovascular: Yes: Regular Rate and Rhythm Respiratory: Yes: Regular, CTA Bilaterally Gastrointestinal: Yes: Normal Bowel Sounds, Soft, Other (minimal epigasteric tenderness to deep palpation) ...Rectal Exam: Yes: Deferred Extremities: Yes: WNL Edema: No Integumentary: No: Rash Psychiatric: Yes: Alert, Oriented Labs: CBC, BMP 08/18/17 06:15 08/18/17 06:15 blood cultures pending Imaging - Results Chest X-ray: Report Reviewed, Image Reviewed X-ray: Report Reviewed, Image Reviewed (partial SBO) Problem List - Problems (1) Small bowel obstruction Code(s): K56.609 - UNSP INTESTNL OBST, UNSP TO PARTIAL VERSUS COMPLETE OBST (2) Hypertension Code(s): I10 - ESSENTIAL (PRIMARY) HYPERTENSION (3) Left inguinal hernia Code(s): K40.90 - UNIL INGUINAL HERNIA, W/O OBST OR GANGR, NOT SPCF RECUR Assessment/Plan doing well NGT tube out +BM would continue to observe off antibiotics wbc now normal and SBO appears to be resolving please call back if needed
[2017-08-18] MEDS ORDERED: SODIUM CHLORIDE 1,000 ML IV SCH (16:45)
[2017-08-18 20:01] LABS: BASO % 1.2 % (0-2.0); EOS % 5.1 % (0-4.5); HEMATOCRIT 37.6 % (35.4-49); HEMOGLOBIN 12.9 GM/dL (11.7-16.9); LYMPH % 23.3 % (8-40); MCH 29.2 pg (25.7-33.7); MCHC 34.3 g/dl (32.0-35.9); MEAN CELL VOLUME 85.3 fl (80-96); MEAN PLT VOLUME 9.7 fl (7.5-11.1); MONO % 10.5 % (3.8-10.2); NEUT % 59.9 % (42.8-82.8); PLATELET COUNT 209 K/MM3 (134-434); RDW 14.3 % (11.9-15.9); WHITE BLOOD COUNT 10.5 K/mm3 (4.0-10.0)
[2017-08-19 07:18] LABS: BASO % 0.6 % (0-2.0); EOS % 7.8 % (0-4.5); HEMATOCRIT 39.7 % (35.4-49); HEMOGLOBIN 13.5 GM/dL (11.7-16.9); LYMPH % 20.5 % (8-40); MCH 29.2 pg (25.7-33.7); MEAN CELL VOLUME 85.9 fl (80-96); MEAN PLT VOLUME 9.2 fl (7.5-11.1); MONO % 10.4 % (3.8-10.2); NEUT % 60.7 % (42.8-82.8); PLATELET COUNT 220 K/MM3 (134-434); RBC 4.63 M/mm3 (4.00-5.60); RDW 14.4 % (11.9-15.9); WHITE BLOOD COUNT 9.4 K/mm3 (4.0-10.0)
[2017-08-19 07:48] LABS: ALBUMIN 3.2 g/dl (3.4-5.0); ANION GAP 8 (8-16); BLOOD UREA NITROGEN 6 mg/dL (7-18); CALCIUM 8.1 mg/dL (8.5-10.1); CHLORIDE 107 mmol/L (98-107); CO2 26 mmol/L (21-32); GLUCOSE,RANDOM 114 mg/dL (74-106); MAGNESIUM 2.3 mg/dL (1.8-2.4); POTASSIUM 3.9 mmol/L (3.5-5.1); SODIUM 141 mmol/L (136-145)
[2017-08-19 07:51] LABS: ALK PHOS 44 U/L (45-117); BILIRUBIN,TOTAL 0.6 mg/dL (0.2-1.0); CREATININE 0.7 mg/dL (0.7-1.3); PHOSPHOROUS 3.3 mg/dL (2.5-4.9); SGOT/AST 13 U/L (15-37); SGPT/ALT 19 U/L (12-78); TOT PROT 6.1 g/dl (6.4-8.2)
[2017-08-19] MEDS: amLODIPine BESYLATE 5 MG TABLET (FP) PO SCH (09:15)
[2017-08-19 10:41] VITALS: BP 135/83; PULSE 61; TEMP 98.2
--- NOTE | 2017-08-19 12:33 | PN ---
Progress Note (short form) - Note Progress Note: Pt without any nausea or emesis after clears. Passing flatus and had a BM yesterday. No increase in abd pain. Vital Signs Period Temp Pulse Resp BP Sys/Ramos Pulse Ox Last 24 Hr 98 F-99.6 F 61-90 18-20 135-143/75-92 98-100 GEN: Appears comfortable ABD: soft, non-distended, non-tender. Reducible umbilical hernia. CBC, BMP 08/19/17 06:17 08/19/17 06:17 A/P: 62 yo male with resolving SBO started clears and tolerated them, advanced diet to regular D/w Dr. Leigh, recommend to f/u as outpt as needed D/w the medical team, plan for discharge after tolerating regular diet
--- NOTE | 2017-08-19 14:45 | PN ---
Teaching Attending Note Name of Resident: Kobe Kenney ATTENDING PHYSICIAN STATEMENT I saw and evaluated the patient. I reviewed the resident's note and discussed the case with the resident. I agree with the resident's findings and plan as documented. SUBJECTIVE: Patient is doing well, tolerated full liquid diet and regular diet well. Had a BM , positive for BS. Wants to go home. OBJECTIVE: Vital Signs Temperature 98.2 F 08/19/17 09:00 Pulse Rate 61 08/19/17 09:00 Respiratory Rate 18 08/19/17 09:00 Blood Pressure 135/83 08/19/17 09:00 O2 Sat by Pulse Oximetry (%) 100 08/19/17 09:00 CBCD WBC 9.4 K/mm3 (4.0-10.0) 08/19/17 06:17 RBC 4.63 M/mm3 (4.00-5.60) 08/19/17 06:17 Hgb 13.5 GM/dL (11.7-16.9) 08/19/17 06:17 Hct 39.7 % (35.4-49) 08/19/17 06:17 MCV 85.9 fl (80-96) 08/19/17 06:17 MCHC 34.0 g/dl (32.0-35.9) 08/19/17 06:17 RDW 14.4 % (11.9-15.9) 08/19/17 06:17 Plt Count 220 K/MM3 (134-434) 08/19/17 06:17 MPV 9.2 fl (7.5-11.1) 08/19/17 06:17 CMP Sodium 141 mmol/L (136-145) 08/19/17 06:17 Potassium 3.9 mmol/L (3.5-5.1) 08/19/17 06:17 Chloride 107 mmol/L (98-107) 08/19/17 06:17 Carbon Dioxide 26 mmol/L (21-32) 08/19/17 06:17 Anion Gap 8 (8-16) 08/19/17 06:17 BUN 6 mg/dL (7-18) L D 08/19/17 06:17 Creatinine 0.7 mg/dL (0.7-1.3) 08/19/17 06:17 Creat Clearance w eGFR > 60 (>60) 03/06/18 06:17 Random Glucose 114 mg/dL (74-106) H D 08/19/17 06:17 Calcium 8.1 mg/dL (8.5-10.1) L 08/19/17 06:17 Total Bilirubin 0.6 mg/dL (0.2-1.0) 08/19/17 06:17 AST 13 U/L (15-37) L 08/19/17 06:17 ALT 19 U/L (12-78) 08/19/17 06:17 Alkaline Phosphatase 44 U/L (45-117) L 08/19/17 06:17 Total Protein 6.1 g/dl (6.4-8.2) L 08/19/17 06:17 Albumin 3.2 g/dl (3.4-5.0) L 08/19/17 06:17 CARDIAC ENZYMES Creatine Kinase 136 IU/L (39-308) 08/15/17 15:40 Troponin I < 0.02 ng/ml (0.00-0.05) 08/15/17 15:40 Current Medications Generic Name Dose Route Start Last Admin Trade Name Freq PRN Reason Stop Dose Admin Amlodipine Besylate 5 mg 08/18/17 13:45 08/19/17 09:15 Norvasc - PO 5 mg DAILY CHANDRAKANT Administration Sodium Chloride 1,000 mls @ 125 mls/hr 08/18/17 16:45 08/18/17 18:35 Normal Saline - IV 125 mls/hr ASDIR CHANDRAKANT Administration Morphine Sulfate 2 mg 08/15/17 23:43 08/17/17 11:06 Morphine Injection - IVPUSH 2 mg Q4H PRN Administration PAIN LEVEL 1-5 Home Medications Medication Instructions Recorded Amlodipine Besylate 5 mg PO DAILY 08/15/17 Hydrochlorothiazide [Hctz -] 12.5 mg PO DAILY 08/15/17 PE: Positive for BS. NAD, comfortable. rest of pE per resident's note. CT abdomen and Pelvis: High grade partial SBO, no acute pancreatitis. ASSESSMENT AND PLAN: 62 year old male with PMH of HTn and L inguinal hernia presented with one day history of sever abdominal pain with no nausea or vomiting was found to have small bowel obstruction, admitted to med surg for further evaluation. #s/p partial SBO, resolved, as per surgery patient can go home since tolerated diet . No acute abdomen. Patient will be discharged home today .Discussed with Surgeon angela Donald to discharge the patient. Patient will make an appointment with for follow up. # HTN continue home meds.
--- NOTE | 2017-08-19 16:44 | DS ---
Physical Exam: SUBJECTIVE: Patient seen and examined at bedside. tolerting diet very well. and was able wo move his bowel. denies any N/V or abdominal pain. OBJECTIVE: Vital Signs Period Temp Pulse Resp BP Sys/Ramos Pulse Ox Last 24 Hr 98 F-98.4 F 61-77 18-20 135-142/83-92 98-100 PHYSICAL EXAM GENERAL: AAOx3 in NAD HEAD: NC/AT EYES: EOMI, Conjunctiva clear, sclera anicteric ENT: moist mucous membrane NECK: Supple, no JVD LUNGS: CTA B/L, no crackles no wheezing no accessory muscle use. HEART: RRR, NSR, normal s1, s2, murmur no M/R/G ABDOMEN: Soft, ND, NT, +BS 4 Q, no CVA Tenderness LOWER EXTREMITIES: no edema, +2DP pulse, NEUROLOGICAL: No focal deficit. Normal speech. gait not observed. PSYCHIATRIC: Cooperative. Good eye contact. Appropriate mood and affect. SKIN: Warm, dry, LABS Laboratory Results - last 24 hr 08/18/17 08/19/17 08/19/17 18:30 06:17 06:17 WBC 10.5 H 9.4 RBC 4.40 4.63 Hgb 12.9 13.5 Hct 37.6 39.7 MCV 85.3 85.9 MCH 29.2 29.2 MCHC 34.3 34.0 RDW 14.3 14.4 Plt Count 209 220 MPV 9.7 9.2 Neutrophils % 59.9 60.7 Lymphocytes % 23.3 D 20.5 Monocytes % 10.5 H 10.4 H Eosinophils % 5.1 H 7.8 H Basophils % 1.2 0.6 ESR Sodium 141 Potassium 3.9 Chloride 107 Carbon Dioxide 26 Anion Gap 8 BUN 6 L D Creatinine 0.7 Creat Clearance w eGFR > 60 Random Glucose 114 H D Calcium 8.1 L Phosphorus 3.3 Magnesium 2.3 Total Bilirubin 0.6 AST 13 L ALT 19 Alkaline Phosphatase 44 L C-Reactive Protein Total Protein 6.1 L Albumin 3.2 L 08/19/17 08/19/17 06:17 06:17 WBC RBC Hgb Hct MCV MCH MCHC RDW Plt Count MPV Neutrophils % Lymphocytes % Monocytes % Eosinophils % Basophils % ESR 14 Sodium Potassium Chloride Carbon Dioxide Anion Gap BUN Creatinine Creat Clearance w eGFR Random Glucose Calcium Phosphorus Magnesium Total Bilirubin AST ALT Alkaline Phosphatase C-Reactive Protein 3.1 H Total Protein Albumin CBC, BMP 08/19/17 06:17 08/19/17 06:17 HOSPITAL COURSE: Date of Admission:08/15/17 Date of Discharge: 08/19/17 Ms62 year old male with PMH of HTN and L inguinal hernia presented with one day history of sever abdominal pain with no nausea or vomiting was found to have small bowel obstruction, admitted to med surg for further evaluation. pt was treated conservatively with IV fluids, NPO, NG tube and pain meds and was improved. pt was able to tolerate regular diet before dc and move his bowel. pt is afevrile with no N/V or abdominal pain. pt is hemodynamically stable and ready to dc home, he will follow up with his PCP within a week. if his symptoms return he can retun back to ED. Pt has HTN , controlled with Amlodipine 5 mg po daily , hold HCTZ 12.5 mg po daily. Minutes to complete discharge: 40 Discharge Summary Reason For Visit: SMALL BOWEL OBSTRUCTION Condition: Stable - Instructions Diet, Activity, Other Instructions: You were admitted to the hospital due to small bowel obstruction. that was treated conservatively with fluids and pain management and bowel rest. your symptoms has resolved and you tolerated fluids and diet. you will be discharged home. Please continue to have low fat diet. For the 1st 2 weeks try to have soft diet. Please resume all your home meds as prescribed before admission. Please follow up with your primary care physician within one week. RETURN TO WORK *You may return to work on 08/21/17 If you develop fever , chills , nausea vomiting or symptoms worsen call 911 or return to emergency [facility]. Referrals: James Leigh MD [Staff Physician] - 1 Week Disposition: HOME - Home Medications Comprehensive Discharge Medication List: Ambulatory Orders Amlodipine Besylate 5 mg PO DAILY 08/15/17 Hydrochlorothiazide [Hctz -] 12.5 mg PO DAILY 08/15/17 This patient is new to me today: No Emergency Visit: Yes ED Registration Date: 08/15/17 Care time: The patient presented to the Emergency Department on the above date and was hospitalized for further evaluation of their emergent condition. Critical Care patient: No - Discharge Referral Referred to [facility] No
== END 2017-08-19 15:30 | disposition home or self-care (01) | DRG 390 ==
LOC: JER 15:17 → JERBED 20:18 → J8W 23:38
PROVIDERS: ADMIT Internal Medicine; ATTEND Internal Medicine
DX: K56.690 Other partial intestinal obstruction (principal); I10 Essential (primary) hypertension; D72.828 Other elevated white blood cell count; K40.90 Unilateral inguinal hernia, without obstruction or gangrene, not specified as recurrent
CPT/HCPCS: 36415; 71045-TC-FY; 74019-TC-FY; 74177-TC; 80053; 81003; 82150; 82550; 83690; 83735; 84100; 84484; 85025; 85610; 85651; 85730; 86140; 87040; 93005; 93010; 99283-25